=== PATIENT | female | born 1980 | race Hispanic/Latino ===

== ENCOUNTER 2020-05-05 14:32 | Outpatient (CLI) | payer SELFPAY | END 2020-05-05 14:33 | disposition home or self-care (01) | PROVIDERS: Visit Provider Internal Medicine Cardiovascular Disease | DX: I42.0 Dilated cardiomyopathy (principal) | CPT/HCPCS: 93306 ==

== ENCOUNTER 2022-02-09 01:33 | Day surgery (SDC) | payer SELFPAY ==
[2022-02-09] VITALS (8 sets, daily range): BP systolic 137–160; BP diastolic 75–94; PULSE 71–88; RESP 14–17; TEMP 36.6; O2SAT 99–100; BMI 38.0
[2022-02-09 09:48] LABS: Basophils Absolute Auto 0.1 K/mm3 (0.0-0.1); Basophils Percent Auto 0.7 % (0.2-1.2); Eosinophils Absolute Auto 0.1 K/mm3 (0-0.3); Eosinophils Percent Auto 1.1 % (0-4.4); Hematocrit 38.6 % (37.0-47.0); Hemoglobin 13.3 g/dL (12.0-15.0); Immature Granulocyte Absolute 0.02 K/mm3 (0.00-0.031); Immature Granulocyte Percent A 0.3 % (0-0.5); Lymphocytes Absolute Auto 2.03 K/mm3 (0.9-3.2); Lymphocytes Percent Auto 28.7 % (18.3-44.2); Mean Corpuscular HGB Conc 34.5 g/dl (32-36); Mean Corpuscular Hemoglobin 29.8 pg (26-34); Mean Corpuscular Volume 86.4 fl (80-100); Mean Platelet Volume 10.6 fl (7.4-10.4); Monocytes Absolute Auto 0.3 K/mm3 (0.1-0.6); Monocytes Percent Auto 4.7 % (2.6-8.5); Neutrophils Absolute Auto 4.6 K/mm3 (1.3-6.7); Neutrophils Percent Auto 64.5 % (45.5-73.1); Platelet Count Result 221 k/mm3 (150-375); Red Blood Count 4.47 M/mm3 (4.2-5.4); White Blood Count 7.1 K/mm3 (4.5-10.0)
[2022-02-09 09:55] LABS: Anion Gap 8 mmol/L (8-16); Blood Urea Nitrogen 13 mg/dL (7-17); Calcium 8.7 mg/dL (8.4-10.2); Carbon Dioxide 25 mmol/L (22-30); Chloride 106 mmol/L (98-107); Estimated Glomerular Filt Rate > 60; Glucose 103 mg/dL (65-110); Potassium 3.7 mmol/L (3.4-5.0); Sodium 139 mmol/L (137-145)
[2022-02-09 09:57] LABS: INR 1.1; Prothrombin Time 13.5 Seconds (11.1-14.7)
--- NOTE | 2022-02-09 10:16 | PM.IMHP ---
H&P: HPI History of Present Illness Date/Time: 02/09/22 10:16 Chief Complaint: Chest pain, abnormal stress Narrative: 41-year-old [place] female was diagnosed with a cardiomyopathy in September 2017 with an EF of 30-35% and mild CHF. She has done well. Recently she has complained of some heartburn with walking, and housework, as well as sometimes at night which lasts about 10 minutes. It is relieved with rest. This bothers her frequently, perhaps 4 times a week, despite her metoprolol treatment. Test showed good exercise tolerance, 9.18 minutes, exercise-induced chest pain, [address] segment depression, and a reversible defect of the anterior apical and apical septal areas. EF 56%. Her symptoms persist despite metoprolol as an she is here for evaluations with cardiac catheterization and possible PCI. Review of Systems Constitutional: Constitutional: Denies fever(s) ENT: Reports epistaxis Cardiovascular: Cardiovascular: Reports chest pain, Denies pedal edema, Denies lightheadedness and Denies dyspnea Respiratory: Respiratory: Denies chest congestion and Denies dyspnea Gastrointestinal: Gastrointestinal: Denies abdominal pain, Denies hematochezia and Reports heartburn Genitourinary: Genitourinary: Denies no additional female genitourinary complaints (Continues to have menstrual periods. States that she could not be ) Comments: No history of tubal ligation. Musculoskeletal: Musculoskeletal: Reports no additional musculoskeletal complaints Integumentary/Breasts: Skin/Breast: Reports system reviewed and no additional complaints, except as docu Neurologic: Reports system reviewed and no additional complaints, except as documented, Denies behavioral changes and Denies confusion Psychiatric: Psychiatric: Denies behavioral changes and Denies confusion Meds Home Medications and Allergies Home Medications Medication Instructions Recorded Confirmed Type aspirin 81 mg tablet 81 mg PO DAILY 02/09/22 02/09/22 History carvedilol 25 mg tablet 25 mg PO BID 02/09/22 02/09/22 History losartan 100 mg tablet 100 mg PO DAILY 02/09/22 02/09/22 History Allergies Allergy/AdvReac Type Severity Reaction Status Date / Time lisinopril AdvReac Cough Verified 02/09/22 10:23 Vital Signs Vital Signs - 24 hr 02/09/22 09:35 Temperature 97.8 F Pulse Rate 84 Respiratory Rate 14 Blood Pressure 160/94 H Pulse Oximetry 100 Oxygen Delivery Room Air Exam Const: General: cooperative, healthy appearing and comfortable; No confusion Orientation/consciousness: oriented to person, patient oriented x3 and No confusion Other: Daughter at the bedside Eyes: EOM: EOMs intact bilaterally Neck: Thyroid: thyroid normal Resp: Effort & Inspection: normal respiratory effort Auscultation: clear to auscultation bilaterally Cardio: Rate: regular rate Rhythm: regular rhythm Other: Pedal pulses are intact. Right femoral arteries intact with no bruit GI: Inspection: normal to inspection GI Palp: No abdominal tenderness Skin: General skin exam: no rashes or lesions noted Neuro: General: oriented to person, patient oriented x3 and No confusion Extrem: Right lower extremity: no edema Left lower extremity: no edema Psych: Appearance: grossly normal Mental Status: mental status grossly normal H&P: Results Labs Labs: Short CBC 02/09/22 Range/Units 09:20 WBC 7.1 (4.5-10.0) K/mm3 Hgb 13.3 (12.0-15.0) g/dL Hct 38.6 (37.0-47.0) % Plt Count 221 (150-375) k/mm3 [facility] 02/09/22 09:20 Sodium 139 Potassium 3.7 Chloride 106 Carbon Dioxide 25 BUN 13 Creatinine 0.70 Glucose 103 Calcium 8.7 test was negative Assessment and Plan Assessment and plan (1) Chest pain: Code(s): R07.9 - Chest pain, unspecified Status: Acute Assessment and Plan: 41-year-old female with chest discomfort at rest and with exertion, some of which is consistent with angina. Stress
--- NOTE | 2022-02-09 10:26 | WPDMODSED ---
Moderate Sedation Note-Pt Data Patient Data Diagnosis: Chest pain, positive stress,, history of cardiomyopathy Present Complaint: Chest pain, anginal, positive stress test Procedure to be performed/Plan: Conscious sedation Left heart catheterization Possible PCI Allergies Allergy/AdvReac Type Severity Reaction Status Date / Time lisinopril AdvReac Cough Verified 02/09/22 10:23 Home Medications Medication Instructions Recorded Confirmed Type aspirin 81 mg tablet 81 mg PO DAILY 02/09/22 02/09/22 History carvedilol 25 mg tablet 25 mg PO BID 02/09/22 02/09/22 History losartan 100 mg tablet 100 mg PO DAILY 02/09/22 02/09/22 History Current Medications: Active Medications Sodium Chloride (Normal Saline Iv) 500 mls @ 100 mls/hr IV CONT .Q5H TOPHER Sodium Chloride (Normal Saline Iv) 500 mls @ 100 mls/hr IV CONT .Q5H TOPHER Sedation/Anesthesia: No previous sedation/anesthesia problems (including family history). [facility] Past Medical History Medical History (Updated 02/09/22 @ 10:27 by Hortensia Mcallister MD) Cardiomyopathy Social History Social History (Updated 02/09/22 @ 10:28 by Hortensia Mcallister MD) Social History: , has children, originally from [place], works as a club waiter/waitress Mod Sed Physical Exam Physical Exam Pre Procedural Exam: Normal: Appearance, Eyes, Ears, Nose, Neck, Throat, Airway, Lungs, Heart Size, Heart Rate, Heart Rhythm, Neuro Exam, Abdomen, Liver, Extremities and Skin Hours since solid foods: 12 Hours since liquid intake: 12 Mallampati Classification: class II Internal Medicine - PN: Obj Da Vital Signs Vital Signs: Vital Signs - 24 hr 02/09/22 09:35 Temperature 97.8 F Pulse Rate 84 Respiratory Rate 14 Blood Pressure 160/94 H Pulse Oximetry 100 Oxygen Delivery Room Air Meds/Results Medications: Active Medications Generic Name Dose Route Start Last Admin Trade Name Freq PRN Reason Stop Dose Admin Sodium Chloride 500 mls @ 100 mls/hr 12/22/21 08:30 Normal Saline Iv IV CONT .Q5H TOPHER Sodium Chloride 500 mls @ 100 mls/hr 02/09/22 08:30 Normal Saline Iv IV CONT .Q5H TOPHER Labs CBC & Chem 7: 02/09/22 09:20 02/09/22 09:20 Labs: Laboratory Results - last 24 hr 02/09/22 02/09/22 02/09/22 09:20 09:20 09:20 WBC 7.1 RBC 4.47 Hgb 13.3 Hct 38.6 MCV 86.4 MCH 29.8 MCHC 34.5 RDW 13.0 Plt Count 221 MPV 10.6 H Immature Gran % (Auto) 0.3 Neut % (Auto) 64.5 Lymph % (Auto) 28.7 Gillespie % (Auto) 4.7 Eos % (Auto) 1.1 Baso % (Auto) 0.7 Lymph # (Auto) 2.03 Gillespie # (Auto) 0.3 Eos # (Auto) 0.1 Baso # (Auto) 0.1 Abs Immat Gran (auto) 0.02 Absolute Neuts (auto) 4.6 Absolute Nucleated RBC 0.0 Nucleated RBC % 0.0 PT 13.5 INR 1.1 Sodium 139 Potassium 3.7 Chloride 106 Carbon Dioxide 25 Anion Gap 8 BUN 13 Creatinine 0.70 Estim Creat Clear Calc Not Reportable Estimated GFR > 60 Glucose 103 Calcium 8.7 ASA Classification/Sedation ASA Classification/Sedation ASA Class: III Emergent: No Risks: Risks, benefits and alternatives explained and patient/family accepted plan for sedation. Patient re-evaluated immediately prior to sedation.
--- NOTE | 2022-02-09 11:16 | PM.OP ---
Procedure Note - Brief Procedure Note - Brief Date of procedure: 02/09/22 Pre-op diagnosis: chest pain, abnormal stress test Post-op diagnosis: Other (Normal epicardial arteries) Procedure performed: conscious sedation Left heart catheterization Description of procedure: uneventful left heart catheterization Surgeon: Hortensia Mcallister MD Findings: normal coronary arteries EF 55%
--- NOTE | 2022-02-09 11:17 | WPDCARDPROC ---
Cardiac Cath Procedure Note Date of procedure:: 02/18/22 Performing physician:: Hortensia Mcallister MD Indication:: chest pain, abnormal stress test Brief clinical history:: 41-year-old [place] female was diagnosed with a cardiomyopathy in September 2017 when she was admitted with mild CHF,with an EF of 30-35%.? She has done well.? Recently she has complained of some heartburn with walking, and housework, as well as sometimes at night which lasts about 10 minutes.? It is relieved with rest.? This bothers her frequently, perhaps 4 times a week, despite her metoprolol treatment.? Test showed good exercise tolerance, 9.18 minutes, exercise-induced chest pain, [address] segment depression, and a reversible defect of the anterior apical and apical septal areas.? EF 56%.? Her symptoms persist despite metoprolol as an she is here for evaluations with cardiac catheterization and possible PCI. Procedure Procedure performed:: Procedure: 1. Conscious sedation 2. Left heart catheterization 3. Selective Coronary angiography 4. Left ventriculography 5. Angiography of the right common femoral artery Sedation/Medication given:: Conscious sedation: The patient has no known prior history of adverse affects of conscious sedation. Oropharynx was clear. The patient is deemed a good candidate for conscious sedation. Conscious sedation began at 1041 Conscious sedation ended at: 1108 Total conscious sedation time: 27 minutes Medications: Versed 1 mg, fentanyl 50 mcg IV push The patient had continuous hemodynamic monitoring, and was also continuously monitored by: Tom Verduzco RN The patient tolerated conscious sedation well. Estimated blood loss:: 5 cc Procedure note:: Site: Right femoral artery Catheters: 5 Lithuanian arterial sheath, 5 Lithuanian 4 cm right and left Bindu catheters, 5 Lithuanian 3.5 cm left [id number] Lithuanian pigtail catheter Detailed procedure: After informed consent the patient brought to the greenskeeper laborer and the right femoral area was prepped and draped in the usual fashion. After conscious sedation and local anesthesia the right femoral artery was punctured and cannulated with the arterial sheath. Selective Coronary angiography was performed with the coronary catheters in multiple projections. These were withdrawn. The pigtail catheter was advanced into the central circulation and left ventricle for pressure measurements and left ventriculography which was performed in the ADAMS projection. This was withdrawn. Angiography revealed the arterial sheath was not suitable position for a vascular closure device. Later the arterial sheath was removed Angio-Seal was applied and hemostasis was obtained. The patient tolerated the procedure well with no complications. Estimated blood loss was negligible. Findings:: Pressures: Post angiographic aortic pressure 140/ 80, post angiographic LV pressure 150/ 18 mmHg Left coronary artery the left main, Left anterior descending and circumflex vessels were widely patent and free of disease. Right coronary artery: The dominant right coronary artery was free of disease Left ventriculogram: Left ventriculography reveals left ventricular function of the lower end of normal, EF 55%, no mitral regurgitation Conclusion:: Normal coronary arteries Mild systolic hypertension Left ventricular function at the lower end of normal, EF 55% Assessment and Plan Assessment and plan (1) Cardiomyopathy: Code(s): I42.9 - Cardiomyopathy, unspecified Status: Acute (2) Chest pain: Code(s): R07.9 - Chest pain, unspecified Status: Acute Plan The patient's cardiomyopathy has improved over the years. Some of the patient's symptoms appear anginal and some, particularly the nocturnal heartburn, may be from GERD. Will try PPI and follow-up in the office. She may have microvascular disease /endothelial dysfunction accounting for some of this and if the discomfort co
--- NOTE | 2022-02-09 14:37 | SUR.PHASEII ---
1330-Pt assisted up to chair. Pt ambulated to bathroom without difficulty. 1400-Discharge instruction reviewed in detail with pt and daughter. Pt escorted off floor via wheelchair.
== END 2022-02-09 14:39 | disposition home or self-care (01) ==
PROVIDERS: Visit Provider Internal Medicine Cardiovascular Disease
PROC: 4A023N7 Measurement of Cardiac Sampling and Pressure, Left Heart, Percutaneous Approach (ICD-10-PCS; CPT 93452; principal; 2022-02-09 10:00)
DX: R94.39 Abnormal result of other cardiovascular function study (principal); R07.9 Chest pain, unspecified; I42.9 Cardiomyopathy, unspecified; I11.0 Hypertensive heart disease with heart failure; I50.9 Heart failure, unspecified; Z79.82 Long term (current) use of aspirin
CPT/HCPCS: 36415; 80048; 85025; 85610; 93458; C1760; C1887; C1894; G0269; J1644; J2250; J3010; J7040

== ENCOUNTER 2024-02-07 10:08 | Emergency (ER) | payer SELFPAY ==
[2024-02-07 10:35] VITALS: BP 137/83; PULSE 85; RESP 16; TEMP 36.9; O2SAT 99
--- NOTE | 2024-02-07 11:34 | ED.LOWEXIN ---
HPI - Extremity Injury (Lower) General Chief Complaint: Extremity Injury, Lower Stated Complaint: left leg swollen,painful Time Seen by Provider: 02/07/24 11:25 Source: patient, family (son) and RN notes reviewed Mode of arrival: ambulatory Limitations: no limitations History of Present Illness HPI Narrative: Patient presents today with her son, complaining of pain to her entire left leg, primarily to the medial knee and thigh. Denies injury. Symptoms began over a week ago. States that over the last 3 days her entire left leg was swollen, but this has since resolved today. Pain increases with weight-bearing. She has been taking Tylenol and ibuprofen without relief. She does report intermittent numbness to the thigh as well. Related Data Home Medications Medication Instructions Recorded Confirmed aspirin 81 mg tablet 81 mg PO DAILY 02/09/22 02/09/22 carvedilol 25 mg tablet 25 mg PO BID 02/09/22 02/09/22 losartan 100 mg tablet 100 mg PO DAILY 02/09/22 02/09/22 Allergies Allergy/AdvReac Type Severity Reaction Status Date / Time lisinopril AdvReac Cough Verified 02/09/22 10:23 Review of Systems Review of Systems: CONSTITUTIONAL: Denies body aches, fever, chills, or sweats. EYES: Denies visual changes, redness, or discharge. ENT: Denies rhinorrhea, congestion, sore throat, or otalgia. CARDIOVASCULAR: Denies chest pain, palpitations, or edema. RESPIRATORY: Denies cough or dyspnea. GASTROINTESTINAL: Denies abdominal pain, nausea, vomiting, or diarrhea. GENITOURINARY: Denies dysuria or hematuria. SKIN: Denies rash, itching, or wounds. MUSCULOSKELETAL: + left leg pain and numbness NEUROLOGIC: Denies headache, tingling, or weakness. PSYCH: Denies depression or anxiety. [facility] Past Medical History Medical History Cardiomyopathy Social History Social History Social History: , has children, originally from [place], works as a housekeeper nanny Comments At time of signature, I have reviewed and agree with nursing past medical, surgical, social and family history unless otherwise noted. Please see nursing chart for further information. There is no relevant family history pertinent to the presenting complaint Exam Narrative: GENERAL: Well-appearing, well-nourished, and in no acute distress. HEAD: Normocephalic, atraumatic. EYES: EOMI. No redness or drainage. Conjunctivae normal. ENT: Mucous membranes pink and moist. NECK: Normal AROM. CHEST: No respiratory distress. EXTREMITIES: No appreciable swelling through the entire leg and foot. Patient has tenderness to the medial calf, extending to the popliteal fossa and medial thigh. Positive Homans. No erythema of the leg, ecchymosis. Distal sensation intact. Capillary refill normal. Pedal pulse normal. Full range of motion of the leg and ankle. Strength normal. No color change. SKIN: Warm, dry, no rash. Capillary refill normal. Normal skin turgor. NEURO: No focal deficits. Alert and oriented x3. Gait steady. PSYCH: Normal affect. No signs of depression or anxiety. Course Course Level of Care: Express Care Visit Vital Signs Vital signs: Vital Signs Temperature 98.4 F 02/07/24 10:35 Pulse Rate 85 02/07/24 10:35 Respiratory Rate 16 02/07/24 10:35 Blood Pressure 137/83 02/07/24 10:35 Pulse Oximetry 99 02/07/24 10:35 Oxygen Delivery Room Air 02/07/24 10:35 Temperature 98.4 F 02/07/24 10:35 Pulse Rate 85 02/07/24 10:35 Respiratory Rate 16 02/07/24 10:35 Blood Pressure 137/83 02/07/24 10:35 Pulse Oximetry 99 02/07/24 10:35 Oxygen Delivery Room Air 02/07/24 10:35 Reviewed Transfer Transfered to: [place] Transportation: Other (Private vehicle) Transfer rationale: Left leg pain Accepting physician: Ian MDM - Extremity Injury (Lower) MDM Narrative Medical decision abbie
== END 2024-02-07 11:46 | disposition short-term general hospital (02) ==
PROVIDERS: Emergency Provider Nurse Practitioner; PCP Physician Assistant
DX: M79.652 Pain in left thigh (principal); M79.662 Pain in left lower leg; I42.9 Cardiomyopathy, unspecified; Z79.82 Long term (current) use of aspirin
CPT/HCPCS: 99212; G0463

== ENCOUNTER 2024-02-07 12:05 | Emergency (ER) | payer SELFPAY ==
--- NOTE | ~2024-02-07 | XR_ITS ---
Left Knee Technique: AP, lateral, and oblique views were obtained. Clinical History: Swelling Findings: No fracture or dislocation is seen. Osseous alignment is anatomic. Joint spaces are preserv ed without degenerative or erosive change. Soft tissues are unremarkable. No joint effusion is seen. Impression: Unremarkable left knee radiographs. Reviewed, dictated and finalized at location . Impression: Unremarkable left knee radiographs.
[2024-02-07 12:06] VITALS: BP 168/101; PULSE 84; RESP 17; TEMP 36.3; O2SAT 100
--- NOTE | 2024-02-07 14:18 | ED.LOWEXIN ---
HPI - Extremity Injury (Lower) General Chief Complaint: Extremity Injury, Lower <Georgia Sosa MD - Last Filed: 02/10/24 22:26> Stated Complaint: right knee pain, swollen ankle <Georgia Sosa MD - Last Filed: 02/10/24 22:26> Time Seen by Provider: 02/07/24 14:17 <Georgia Sosa MD - Last Filed: 02/10/24 22:26> History of Present Illness HPI Narrative: 43-year-old Azeri-speaking female who presents to the emergency room from urgent care for evaluation of left knee pain. Patient states several days ago she awoke with pain to the medial aspect of her left knee with notable swelling into the thigh and calf. Denies any known injury or trauma. Patient states the swelling has improved. Reports the pain is worse with ambulation, and feels like her knee is going to give out on her when walking. <Jose Juan Patel APRN - Last Filed: 02/07/24 14:33> Related Data Home Medications: Home Medications Medication Instructions Recorded Confirmed aspirin 81 mg tablet 81 mg PO DAILY 02/09/22 02/09/22 carvedilol 25 mg tablet 25 mg PO BID 02/09/22 02/09/22 losartan 100 mg tablet 100 mg PO DAILY 02/09/22 02/09/22 <Georgia Sosa MD - Last Filed: 02/10/24 22:26> Allergies/Adverse Reactions: Allergies Allergy/AdvReac Type Severity Reaction Status Date / Time lisinopril AdvReac Cough Verified 02/09/22 10:23 <Georgia Sosa MD - Last Filed: 02/10/24 22:26> Review of Systems Review of Systems: ROS unremarkable except for noted in HPI <Jose Juan Patel APRN - Last Filed: 02/07/24 14:33> [facility] Past Medical History Medical History: Medical History Cardiomyopathy <Georgia Sosa MD - Last Filed: 02/10/24 22:26> Social History Social History: Social History Social History: , has children, originally from [place], 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 HEAD: Normocephalic, atraumatic. EYES: Non injected, non icteric ENT: Nares clear, no rhinorrhea or epistaxis. NECK: Supple. CHEST: Speaking in full sentences. No respiratory distress. HEART: Regular rate and rhythm. . ABDOMEN: Soft, nondistended. EXTREMITIES: Normal range of motion. No edema. SKIN: Warm, dry, no rash. NEURO: No focal deficits. Alert and oriented x3. PSYCH: Normal mood and affect. <Georgia Sosa MD - Last Filed: 02/10/24 22:26> GENERAL: Well-appearing, well-nourished, and in no acute distress. HEAD: Normocephalic, atraumatic. EYES: Non injected, non icteric ENT: Nares clear, no rhinorrhea or epistaxis. NECK: Supple. CHEST: Speaking in full sentences. No respiratory distress. HEART: Regular rate and rhythm. . ABDOMEN: Soft, nondistended. EXTREMITIES: Normal range of motion. No edema. Pain with valgus and varus pressure. No joint laxity. No obvious bony abnormality. No soft tissue swelling noted. Distal pulses present. Negative Homans sign left lower extremity SKIN: Warm, dry, no rash. NEURO: No focal deficits. Alert and oriented x3. PSYCH: Normal mood and affect. <Jose Juan Patel APRN - Last Filed: 02/07/24 14:33> Course [employer] FABRICATOR/PA Physician Supervision Patient evaluated by ATUL in triage. I had received notification about patient from prior to her arrival. ATUL evaluated patient and felt comfortable with evaluation and management and discharging patient after she was roomed. I did go into room and saw patient but did not personally examine her extremity and was not involved in her care. <Georgia Sosa MD - Last Filed: 02/10/24 22:26> Vital Signs Vital signs: Vital Signs Temperature 97.4 F L 02/07/24 12:06 Pulse Rate 84 02/07/24 12:06 Respiratory Rate 17 02/07/24 12:06 Blood Pre
[2024-02-07 15:04] VITALS: BP 141/86; PULSE 78; RESP 18; O2SAT 99
== END 2024-02-07 15:06 | disposition home or self-care (01) ==
LOC: ANHED 14:43
PROVIDERS: Emergency Provider Nurse Practitioner Family; PCP Physician Assistant
DX: M25.562 Pain in left knee (principal); Z79.82 Long term (current) use of aspirin; I42.9 Cardiomyopathy, unspecified
CPT/HCPCS: 73562; 99283